=== PATIENT | female | born 1945 | race Caucasian/White ===

== ENCOUNTER 2019-08-06 12:38 | Inpatient (IN) ==
[2019-08-06] MEDS ORDERED: ACETAMINOPHEN 325 MG TABLET PO PRN (12:48)
[2019-08-06] MEDS ORDERED: ONDANSETRON 4 MG/2 ML VIAL IV PRN (12:48)
[2019-08-06] MEDS ORDERED: LOPERAMIDE 2 MG CAPSULE PO PRN (13:02)
[2019-08-06 14:10] LABS: Basophils # 0.1 10*3/uL (0.0-0.2); Basophils % 0.4 % (0.0-0.8); Eosinophils % 0.1 % (0.00-10.9); Hematocrit 42.6 VOL% (35.7-47.0); Hemoglobin 14.6 GM/DL (12.0-16.0); Immature Granulocytes % 0.7 %; Lymphocytes # 3.3 10*3/uL (1.4-4.0); Lymphocytes % 21.9 % (21.3-54.2); Mean Corpuscular HGB Conc 34.3 GM/DL (32-36); Mean Corpuscular Volume 90.8 FL (87-102); Mean Platelet Volume 10.6 FL (9.6-12.0); Neutrophils % 65.9 % (38.7-73.9); Platelet Count 406 T/CUMM (130-400); Red Blood Count 4.69 MC/CUMM (3.8-5.5); Red Cell Distribution Width 12.2 % (9.3-17.3); White Blood Count 15.1 T/CUMM (4-12)
[2019-08-06] MEDS: SODIUM CHLORIDE 0.9% 1,000 ML IV SCH (14:21)
[2019-08-06] MEDS: cefTRIAXone 1,000 MG in SYRINGE 1 EACH IV SCH (14:21)
[2019-08-06] MEDS: methylPREDNISolone SOD SUC 40 MG/1 ML VIAL IV SCH (14:23)
[2019-08-06 14:46] LABS: Bilirubin,Total 1.8 MG/DL (0.2-1.0); Calcium 9.3 MG/DL (8.5-10.1); Osmolality,Calculated 252.4 MOS/KG (273-304); Total Protein 7.5 G/DL (6.4-8.3)
[2019-08-06 15:45] LABS: Apearance,Urine CLEAR (Clear); Bacteria,Urine Moderate /HPF (Few); Bilirubin,Urine Negative (Negative); Blood, Urine Small mg/dL (Negative); Glucose,Urine (UA) Negative (Negative); Ketones,Urine 20 mg/dL (Negative); Nitrite,Urine Negative (Negative); Protein,Urine Negative; RBC,Urine 1 /HPF (0-4); Squamous Epithelial Cell,Urine Occasional /HPF (0-10); Urine Color Yellow (Yellow); Urine Specific Gravity 1.009 (1.001-1.035); WBC,Urine 2 /HPF (0-6)
[2019-08-06] MEDS: ALBUTEROL/IPRATROPIUM 3 ML NEB RESP TX SCH (19:14)
[2019-08-06] MEDS ORDERED: ROSUVASTATIN 10 MG TABLET PO SCH (21:00)
[2019-08-06] MEDS: BENZONATATE 100 MG CAPSULE PO SCH (21:20)
[2019-08-06] MEDS: MOMETASONE 50 MCG NASAL SPRAY 17 GM BOTTLE BOTH NARES SCH (21:20)
[2019-08-06] MEDS: DOCUSATE SODIUM 100 MG CAPSULE PO SCH (21:20)
[2019-08-06] MEDS: ENOXAPARIN 30 MG/0.3 ML SYRINGE SUBCUT SCH (21:20)
[2019-08-06] MEDS: HYDROcodone/CHLORPHENIRAMINE ER 5 ML UDCUP PO SCH (21:21)
[2019-08-07] MEDS: ALBUTEROL/IPRATROPIUM 3 ML NEB RESP TX SCH ×4 (00:28→18:42)
[2019-08-07] MEDS: methylPREDNISolone SOD SUC 40 MG/1 ML VIAL IV SCH ×2 (02:25→14:28)
[2019-08-07] MEDS: SODIUM CHLORIDE 0.9% 1,000 ML IV SCH ×2 (02:28→15:47)
[2019-08-07] MEDS: LEVOTHYROXINE 125 MCG TABLET PO SCH (06:20)
[2019-08-07 06:47] LABS: Basophils % 0.1 % (0.0-0.8); Hematocrit 38.1 VOL% (35.7-47.0); Hemoglobin 12.9 GM/DL (12.0-16.0); Immature Granulocytes % 0.6 %; Immature Granulocytes Absolute 0.07 #; Lymphocytes % 9.2 % (21.3-54.2); Mean Corpuscular HGB Conc 33.9 GM/DL (32-36); Mean Corpuscular Volume 91.8 FL (87-102); Mean Platelet Volume 10.4 FL (9.6-12.0); Monocytes % 2.9 % (1.7-12.7); Neutrophils % 87.2 % (38.7-73.9); Platelet Count 383 T/CUMM (130-400); Red Blood Count 4.15 MC/CUMM (3.8-5.5); Red Cell Distribution Width 12.3 % (9.3-17.3); White Blood Count 11.2 T/CUMM (4-12)
[2019-08-07 06:59] LABS: INR 0.9; PT Patient Result 9.9 SECS (9.6-12.2)
[2019-08-07 07:08] LABS: Albumin 2.7 G/DL (3.4-5.0); Bilirubin,Total 0.8 MG/DL (0.2-1.0); Calcium 8.8 MG/DL (8.5-10.1); Osmolality,Calculated 259.9 MOS/KG (273-304); Total Protein 7.1 G/DL (6.4-8.3)
[2019-08-07 07:56] LABS: Hepatitis B Core IgM Quant 0.08 Index; Hepatitis B Surface Ag Quant < 0.10 Index; Hepatitis B Surface Ag Result Negative (Negative); Hepatitis C Virus Ab Quant < 0.02 Index; Hepatitis C Virus Ab Result Negative (Negative)
[2019-08-07] MEDS ORDERED: methylPREDNISolone SOD SUC 40 MG/1 ML VIAL IV ONE (08:14)
[2019-08-07] MEDS: hydroCHLOROthiazide 25 MG TABLET PO SCH (09:55)
[2019-08-07] MEDS: MAGNESIUM GLUCONATE 500 MG TABLET PO SCH (09:56)
[2019-08-07] MEDS: FEXOFENADINE 180 MG TABLET PO SCH (09:56)
[2019-08-07] MEDS: BENZONATATE 100 MG CAPSULE PO SCH ×3 (09:56→21:26)
[2019-08-07] MEDS: DOCUSATE SODIUM 100 MG CAPSULE PO SCH ×2 (09:56→21:26)
[2019-08-07] MEDS: MONTELUKAST 10 MG TABLET PO SCH (09:56)
[2019-08-07] MEDS: MULTIVITAMIN (CENTRUM) TABLET PO SCH (09:56)
[2019-08-07] MEDS: CHOLECALCIFEROL 1,000 UNIT TABLET PO SCH (09:56)
[2019-08-07] MEDS: THIAMINE 100 MG TABLET PO SCH (09:56)
[2019-08-07] MEDS: PANTOPRAZOLE 40 MG TABLET PO SCH (09:57)
[2019-08-07] MEDS: HYDROcodone/CHLORPHENIRAMINE ER 5 ML UDCUP PO SCH ×2 (09:57→21:27)
[2019-08-07] MEDS: CARVEDILOL PHOSPHATE 20 MG PO SCH (10:04)
[2019-08-07] MEDS: cefTRIAXone 1,000 MG in SYRINGE 1 EACH IV SCH (14:30)
[2019-08-07] MEDS: ENOXAPARIN 30 MG/0.3 ML SYRINGE SUBCUT SCH (21:26)
[2019-08-07] MEDS: MOMETASONE 50 MCG NASAL SPRAY 17 GM BOTTLE BOTH NARES SCH (21:27)
[2019-08-08] MEDS: ALBUTEROL/IPRATROPIUM 3 ML NEB RESP TX SCH ×2 (01:10→07:14)
[2019-08-08] MEDS: methylPREDNISolone SOD SUC 40 MG/1 ML VIAL IV SCH (02:39)
[2019-08-08] MEDS: LEVOTHYROXINE 125 MCG TABLET PO SCH (06:16)
[2019-08-08] MEDS: SODIUM CHLORIDE 0.9% 1,000 ML IV SCH (06:16)
[2019-08-08] MEDS ORDERED: cefTRIAXone 1,000 MG in SYRINGE 1 EACH IV ONE (08:52)
[2019-08-08] MEDS ORDERED: methylPREDNISolone SOD SUC 40 MG/1 ML VIAL IV ONE (08:52)
[2019-08-08 09:13] VITALS: BP 166/75
[2019-08-08] MEDS: FEXOFENADINE 180 MG TABLET PO SCH (10:01)
[2019-08-08] MEDS: hydroCHLOROthiazide 25 MG TABLET PO SCH (10:01)
[2019-08-08] MEDS: MULTIVITAMIN (CENTRUM) TABLET PO SCH (10:01)
[2019-08-08] MEDS: MONTELUKAST 10 MG TABLET PO SCH (10:01)
[2019-08-08] MEDS: THIAMINE 100 MG TABLET PO SCH (10:01)
[2019-08-08] MEDS: CHOLECALCIFEROL 1,000 UNIT TABLET PO SCH (10:02)
[2019-08-08] MEDS: BENZONATATE 100 MG CAPSULE PO SCH (10:02)
[2019-08-08] MEDS: PANTOPRAZOLE 40 MG TABLET PO SCH (10:02)
[2019-08-08] MEDS: MAGNESIUM GLUCONATE 500 MG TABLET PO SCH (10:02)
[2019-08-08] MEDS: DOCUSATE SODIUM 100 MG CAPSULE PO SCH (10:03)
[2019-08-08] MEDS: HYDROcodone/CHLORPHENIRAMINE ER 5 ML UDCUP PO SCH (10:10)
[2019-08-08] MEDS: CARVEDILOL PHOSPHATE 20 MG PO SCH (10:46)
[2019-08-08 10:55] LABS: Bilirubin,Direct 0.13 MG/DL (0.0-0.20); Bilirubin,Indirect 0.3 MG/DL (0.0-1.0); Bilirubin,Total 0.4 MG/DL (0.2-1.0); Total Protein 7.6 G/DL (6.4-8.3)
== END 2019-08-08 10:46 | disposition home or self-care (01) | DRG 202 ==
LOC: N.2W
PROVIDERS: ADMIT Family Medicine; ATTEND Family Medicine